=== PATIENT | male | born 1960 ===

== ENCOUNTER 2023-06-20 14:00 | Emergency (ER) | payer OTHER ==
[~2023-06-20] VITALS: Ht 187.9 cm; Wt 121.6 kg
[2023-06-20 14:55] LABS: HEMATOCRIT 42.3 % (42.0-52.0); MEAN CELL VOLUME 98.6 fl (80.0-94.0); MEAN CORPUSCULAR HGB 29.4 pg (27.0-31.0); MEAN CORPUSCULAR HGB CONC 29.8 g/dl (33.0-37.0); MEAN PLATELET VOLUME 11.8 fl (9.6-12.3); NUCLEATED RED BLOOD CELL 0.1 10*3/uL (0.0-0.0); NUCLEATED RED BLOOD CELL 0.5 % (0.0-0.0); PLATELET COUNT AUTOMATED 153 10*3/uL (130-400); RED BLOOD COUNT 4.29 10*6/uL (4.50-5.90); RED CELL DISTRI WIDTH 14.9 % (0-14.5); WHITE BLOOD COUNT 9.3 10*3/uL (4.8-10.8)
[2023-06-20 14:57] LABS: MANUAL DIFF REFLEX YES
[2023-06-20 15:17] LABS: POTASSIUM 5.1 mmol/L (3.4-5.1); TOTAL PROTEIN 7.2 gm/dL (6.0-8.0)
[2023-06-20 15:37] LABS: ATYPICAL LYMPHS 1 % (0-0); TOTAL CELLS COUNTED 100 #CELLS
[2023-06-20 15:38] LABS: BURR CELLS FEW; PLATELET SUFFICIENCY LOW (NORMAL)
[2023-06-20 15:39] LABS: OVALOCYTES FEW
[2023-06-20 16:48] LABS: VENOUS PH 7.129 (7.37-7.45)
== END 2023-06-20 19:10 | disposition short-term general hospital (02) ==
LOC: ED 14:00
PROVIDERS: Internal Medicine; Nurse Practitioner Family
DX: I46.2 Cardiac arrest due to underlying cardiac condition (principal)